=== PATIENT | female | born 1990 | race Caucasian/White ===

== ENCOUNTER → 2021-07-20 | Outpatient (CLI) | payer OTHER ==
[2021-07-20 18:04] LABS: BASOPHILS ABSOLUTE AUTO 0.06 K/mm3 (0.00-0.23); BASOPHILS PERCENT AUTO 1 % (0-2); EOSINOPHILS ABSOLUTE AUTO 0.31 K/mm3 (0.00-0.68); EOSINOPHILS PERCENT AUTO 3 % (0-6); Hematocrit 41.7 % (33.0-51.0); Hemoglobin 14.3 g/dL (11.5-16.0); IMMATURE GRAN ABSOLUTE AUTO 0.02 K/mm3 (0.00-0.10); IMMATURE GRAN PERCENT AUTO 0 % (0-1); LYMPHOCYTES ABSOLUTE AUTO 2.32 K/mm3 (0.84-5.20); LYMPHOCYTES PERCENT AUTO 22 % (21-46); MONOCYTES ABSOLUTE AUTO 0.42 K/mm3 (0.16-1.47); MONOCYTES PERCENT AUTO 4 % (4-13); Mean Corpuscular HGB 29.3 pg (26.0-34.0); Mean Corpuscular HGB Conc 34.3 g/dL (31.5-36.5); Mean Corpuscular Volume 86 fL (80-100); Mean Platelet Volume 10.7 fL (9.1-12.4); NEUTROPHILS ABSOLUTE AUTO 7.57 K/mm3 (1.96-9.15); NEUTROPHILS PERCENT AUTO 71 % (41-73); Platelet Count 264 K/mm3 (150-400); RDW Standard Deviation 40.4 fL (35.1-46.3); Red Blood Cell Count 4.88 M/mm3 (3.80-5.20)
[2021-07-20 18:21] LABS: Alanine Aminotransfer (ALT/SGP 30 U/L (12-78); Albumin, Blood 3.9 g/dL (3.4-5.0); Albumin/Globulin Ratio 1.1 (0.8-1.8); Alk Phos 59 U/L (50-136); Anion Gap 4 mmol/L (6-16); Aspartate Aminotrans (AST/SGOT 18 U/L (12-37); Bilirubin, Total 0.3 mg/dL (0.1-1.0); Blood Urea Nitrogen 7 mg/dL (8-24); Bun/Creatinine Ratio 9.3 (12.0-20.0); CO2, Blood 26 mmol/L (21-32); Calcium, Blood 9.7 mg/dL (8.5-10.1); Chloride, Blood 106 mmol/L (98-108); Creatinine, Blood 0.75 mg/dL (0.40-1.00); Globulin, Blood 3.5 g/dL (2.2-4.0); Glomerular Filtration Rate >60 (60-); Glucose, Blood 91 mg/dL (70-99); Potassium, Blood 4.2 mmol/L (3.5-5.5); Sodium, Blood 136 mmol/L (136-145); Total Protein, Blood 7.4 g/dL (6.4-8.2)
== END ==
LOC: LAB SHORT 14:50
PROVIDERS: Student in an Organized Health Care Education/Training Program
DX: E66.9 Obesity, unspecified (principal); F17.200 Nicotine dependence, unspecified, uncomplicated
CPT/HCPCS: 80053; 82306; 83036; 85025

== ENCOUNTER 2022-12-03 18:52 | Emergency (ER) | payer OTHER ==
[~2022-12-03] VITALS: Ht 162.6 cm; Wt 108.9 kg
[2022-12-03 22:10] VITALS: BP 152/99
== END 2022-12-03 23:46 | disposition home or self-care (01) ==
LOC: ER 18:52
DX: S01.111A Laceration without foreign body of right eyelid and periocular area, initial encounter (principal); S63.501A Unspecified sprain of right wrist, initial encounter; S30.1XXA Contusion of abdominal wall, initial encounter; S80.211A Abrasion, right knee, initial encounter; V47.5XXA Car driver injured in collision with fixed or stationary object in traffic accident, initial encounter
CPT/HCPCS: 12011; 73110; 74177; 99285-25; Q9967